=== PATIENT | female | born 1985 ===

== ENCOUNTER 2022-06-11 07:00 | Inpatient (IN) | payer OTHER ==
[~2022-06-11] VITALS: Ht 167.6 cm; Wt 127.0 kg
[2022-06-13] MEDS ORDERED: FOLIC ACID0.8 M1 PO (08:30)
[2022-06-13] MEDS ORDERED: IRON236 MG PO (08:30)
[2022-06-13] MEDS ORDERED: VITAMIN D310 MC4 PO (08:30)
== END 2022-06-14 13:26 | disposition home or self-care (01) | DRG 743 ==
LOC: ADM 07:00 → OB/GYN 06-12 06:00 → O/R 06-12 06:00 → EDSTATUS 06-12 07:00 → CIR.AMB 06-12 07:00 → OB/GYN 06-12 07:00
PROVIDERS: ADMIT Specialist; ATTEND Specialist
PROC: 0UDB7ZZ Extraction of Endometrium, Via Natural or Artificial Opening (ICD-10-PCS; 2022-06-12)
PROC: 0UB90ZZ Excision of Uterus, Open Approach (ICD-10-PCS; 2022-06-12)
PROC: 0UB10ZZ Excision of Left Ovary, Open Approach (ICD-10-PCS; principal; 2022-06-12 07:00)
DX: D25.2 Subserosal leiomyoma of uterus (principal); N83.292 Other ovarian cyst, left side; Z20.822 Contact with and (suspected) exposure to COVID-19